=== PATIENT | female | born 1990 | race African-American/Black ===

== ENCOUNTER 2023-09-06 14:35 | Emergency (ER) | payer MEDICAID ==
[~2023-09-06] VITALS: Ht 152.4 cm; Wt 86.4 kg
[2023-09-06 14:45] VITALS: BP 111/52; PULSE 71; RESP 14; TEMP 98.9
== END 2023-09-06 18:01 | disposition still patient (30) ==
LOC: EMS 14:35
DX: S09.90XA Unspecified injury of head, initial encounter (principal); W18.39XA Other fall on same level, initial encounter; Y93.41 Activity, dancing; Y92.89 Other specified places as the place of occurrence of the external cause; Y99.8 Other external cause status
CPT/HCPCS: 70450; 72125; 99284; 99285